=== PATIENT | female | born 1930 | race Caucasian/White ===

== ENCOUNTER 2019-05-30 14:41 | Inpatient (IN) ==
--- NOTE | 2019-05-30 15:27 | Diag Imaging Result Doc PS360 ---
EXAM: CHEST-1 VIEW HISTORY: weakness TECHNIQUE: Single view COMPARISON: None. FINDINGS: The heart is enlarged. The vessels aren't distended and there are small pleural effusions. Left lower lung granuloma. There is basilar atelectasis. IMPRESSION: Cardiomegaly with pulmonary edema and small pleural effusions Electronically signed by Carlos Ro 05/30/2019 3:24 PM
[2019-05-30] MEDS ORDERED: NS 1,000 ML IV ONE (16:03)
[2019-05-30 16:14] LABS: BASO# 0.03 X1000 (0.0-0.2); BASO% 0.4 % (0.0-0.8); EOS# 0.03 X1000 (0.0-0.7); EOS% 0.4 % (0.0-10.0); HEMATOCRIT 30.2 % (37.0-47.0); HEMOGLOBIN 8.6 g/dL (12.0-16.0); LYMPH# 0.98 X1000 (1.2-3.4); MCHC 28.5 g/dL (33-37); MONO# 0.74 X1000 (0.11-0.59); MONO% 9.8 % (1.7-9.3); MPV 10.6 FL (7.4-10.4); NEUT# 5.78 X1000 (1.4-6.5); NEUT% 76.4 % (42.2-75.2); PLT 206 X1000 (130-400); RBC 3.18 XMIL (4.2-5.4); RDW 14.5 % (11.5-14.5); WBC 7.56 X1000 (4.8-10.8)
[2019-05-30 16:19] LABS: INR 1.32; PROTIME 16.6 Seconds (11.0-16.0)
[2019-05-30 16:20] LABS: PTT 28.5 Seconds (22.3-41.8)
[2019-05-30 16:23] LABS: ALB/GLOB RATIO 0.8; CALCIUM 8.4 mg/dL (8.8-10.2); CREATININE 2.3 mg/dL (0.5-0.9); POTASSIUM 4.9 mmol/L (3.5-5.1); TOTAL BILIRUBIN 0.24 mg/dL (0.20-1.00); TOTAL PROTEIN 6.8 g/dL (6.3-8.3)
[2019-05-30] MEDS ORDERED: LASIX IV ONE (17:03)
[2019-05-30 17:53] LABS: URINE SOURCE CATH
[2019-05-30 17:55] LABS: BILIRUBIN URINE NEGATIVE (NEGATIVE); BLOOD URINE NEGATIVE (NEGATIVE); COLOR YELLOW; GLUCOSE URINE NEGATIVE (NEGATIVE); KETONE URINE NEGATIVE (NEGATIVE); LEUKOCYTES URINE NEGATIVE (NEGATIVE); NITRITE URINE NEGATIVE (NEGATIVE); PH URINE 5.5; PROTEIN URINE 100 mg/dL (NEGATIVE); SP GRAVITY URINE 1.017; TURBIDITY URINE HAZY (CLEAR); UR EPITHELIAL CELLS <10 /HPF (<10); URINE BACTERIA NEGATIVE /HPF; URINE RBC <10 /HPF (<10); URINE WBC <10 /HPF (<10); UROBILINOGEN URINE NORMAL (NORMAL)
--- NOTE | 2019-05-30 17:55 | PROVIDER DOCUMENTATION ---
This chart was entered by Sinai Wolff Scribe, acting as scribe for Leonor Li MD. HPI-General Adult - General Stated Complaint: FAILURE TO THRIVE Time Seen by Provider: 05/30/19 14:59 Source: patient, family (), EMS (first response) Allergies/Adverse Reactions: Patient Allergies Allergy/AdvReac Type Severity Reaction Status Date / Time No Known Allergies Allergy Verified 05/30/19 16:11 Home Medications: Home Medication List Medication Instructions Recorded Confirmed Last Taken Type Carvedilol 3.125 mg PO BID 05/30/19 05/30/19 Unknown History Furosemide 20 mg PO DAILY PRN 05/30/19 05/30/19 Unknown History Gabapentin 100 mg PO BID 05/30/19 05/30/19 Unknown History Olmesartan [Benicar] 40 mg PO DAILY 05/30/19 05/30/19 Unknown History Phenylephrine/Acetaminophn/Cpm 1 tab PO Q6H PRN 05/30/19 05/30/19 Unknown History [Norel Ad Tablet] Sulfamethoxazole/Trimethoprim 1 tab PO BID 05/30/19 05/30/19 Unknown History [Sulfamethoxazole-Tmp Ds Tablet] - History of Present Illness -Gen Adult Nature of Presenting Problems: 88 yowf presents to the ed via ems with c/o of fatigue, weakness, sob and low grade fever. is with pt. per ems pt had BP 126/70 O2 was 83% on RA and p t was placed on 3LPM and O2 came up to 94%. pt on exam is lethargic but when questioned pt is a/o x3. sts pt almost fell yesterday due to sx but he was able to help her to rest. Location of Pain/Injury: reports: generalized (weakness and fatigue) Quality of Pain: reports: none Severity: reports: moderate Onset/Duration: reports: this morning Timing: reports: still present, constant Context/Activities at Onset: reports: light activity Modifying Factors: improves with: nothing Associated Symptoms: reports: fever/chills, malaise, shortness of breath, weakness. denies: chest pain, nausea, vomiting Similar Symptoms Previously?: No Recently seen or treated by another doctor?: No Review of Systems - Adult - REVIEW OF SYSTEMS - ADULT Constitutional: reports: see HPI, chills, fever, fatique Eyes: reports: no symptoms reported Ears, Nose, Mouth & Throat: reports: no symptoms reported Cardiovascular: denies: chest pain, palpitations Respiratory: reports: see HPI, shortness of breath. denies: cough, wheezing Gastrointestinal: denies: abdominal pain, diarrhea, nausea, vomiting Genitourinary: reports: no symptoms reported Musculoskeletal: reports: see HPI, other (generalized weakness) Integumentary: reports: no symptoms reported Neurological: denies: dizziness/vertigo, headache/migraines Psychiatric: reports: no symptoms reported Endocrine: reports: no symptoms reported Hematologic/Lymphatic: reports: no symptoms reported Allergic/Immunologic: reports: no symptoms reported All Other Systems: Reviewed and Negative Past History - Adult - PAST MEDICAL HISTORY-ADULT Review of Records: reports: Old Records Reviewed, Nursing Assessment Review, Medications Reviewed, Social history reviewed & non-contributory. Major Childhood Illnesses: reports: denies history Cardiovascular: reports: HTN Respiratory: reports: denies history Gastrointestinal: reports: denies history Obstetrical/Gynecological: reports: denies history Genitourinary: reports: denies history Musculoskeletal: reports: denies history Neurological: reports: denies history Psychiatric: reports: denies history Endocrine/Immune: reports: denies history Other Conditions: reports: denies history - PRIOR SURGERIES/PROCEDURES Surgical/Procedure History: reports: CABG - IMMUNIZATION STATUS Childhood Immunizations: See Nurse Assessment Flu Vaccine: See Nurse Assessment - FAMILY HISTORY Family History: reviewed, not pertinent - SOCIAL HISTORY Smoking: denies Substance Use: denies Living Situation: family Physical Exam-General - PHYSICAL EXAM-ADULT Initial Vital Signs Reviewed: Yes (O2 sat 94% on 3 LPM via nc BP-151/91 RR-27) - CONSTITUTIONAL General Appearance: thin, lethargic - EYES Eyes: PERRL/EOMI - HEAD, EARS, NOSE, MOUTH & THROAT HENMT: negative: moist mucous membranes (dry oral) - NECK Neck: full range of motion, normal inspection - RESPIRATORY Respiratory: chest non-tender, increased rate (27), other (poor resp effort) - CARDIOVASCULAR Cardiovascular: irregularly irregular (afib) - CHEST (BREASTS) Chest/Breast: deferred - GASTROINTESTINAL (ABDOMEN) Abdominal Exam: non tender, soft - GENITOURINARY Female Genitalia/Pelvic Exam: deferred Rectal Exam: deferred Hemoccult Exam: deferred - LYMPHATIC Lymphatic: no adenopathy - MUSCULOSKELETAL Back Exam: no CVA tenderness, no vertebral tenderness Extremity: swelling (BLE) - SKIN Integumentary: normal color, normal turgor, warm/dry - NEUROLOGIC Neurologic: grossly normal - PSYCHIATRIC Psych/Mental Status: normal thought content, normal thought process, oriented x 3 Progress - PLAN OF CARE/RESULTS Result Diagrams: 05/30/19 15:47 05/30/19 15:47 - REASSESSMENT Reassessment #1 Time Reassessed: 17:35 Status: improving (Patent reports some improvement. no sob at this time. Discussed abnormal labs- elevated probnp, elevated bun/cr and abnormal cxr. Will give lasix and call for admission) - EKG 1 Time of EKG reading by physician:: 15:55 EKG Read and Signed by:: Jon Ward EKG Interpretation (*Must complete 3 of following elements*): Abnormal Rate: 74 Rhythm: afib [place]: normal QRS: normal NM Interval: normal ST Wave: normal - XRAY 1 XRAY: Bilateral XRAY Study: Chest ( EXAM: CHEST-1 VIEW HISTORY: weakness TECHNIQUE: Single view COMPARISON: None. FINDINGS: The heart is enlarged. The vessels aren't distended and there are small pleural effusions. Left lower lung granuloma. There is basilar atelectasis. IMPRESSION: Cardiomegaly with pulmonary edema and small pleural effusions Electronically signed by Carlos Ro 05/30/2019 3:24 PM) Impression: See EMR Report (EXAM: CHEST-1 VIEW HISTORY: weakness TECHNIQUE: Single view COMPARISON: None. FINDINGS: The heart is enlarged. The vessels aren't distended and there are small pleural effusions. Left lower lung granuloma. There is basilar atelectasis. IMPRESSION: Cardiomegaly with pulmonary edema and small pleural effusions Electronically signed by Carlos Ro 05/30/2019 3:24 PM 05/30/19 152 Interpreting Physician: Carlos Ro MD Dictated Date/Time: 05/30/191523 cc: Leonor Li MD; Lucia Atkins) - CONSULTS/PCP/HOSPITALIST Notification #1 *Consult/PCP/Hospitalist*: Dr Nolan Time Discussed: 17:52 Consult Disposition: Admit (accepts admission) Departure - Departure Date of Disposition Decision: 05/30/19 Time of Disposition Decision: 17:50 DIAGNOSIS: Hypoxemia, Renal insufficiency CHF (congestive heart failure) Qualifiers: Heart failure type: unspecified Heart failure chronicity: acute Qualified Code(s): I50.9 - Heart failure, unspecified Disposition: ADMITTED INPATIENT 09 Certified Medical Emergency: Emergent Condition: Fair Referrals and Follow-Ups: Lucia Atkins CRNP [Primary Care Provider] - - Critical Care Note This patient required my direct & personal management of CC.: No Attestation - Physician/ CELIO Attestation Patient care was provided by Advanced Practice Provider:: No The physician spent face to face time with patient:: Yes Advanced Practice Provider documentation review:: Supervising physician onsite and consulted in the evaluation and care of this patient. The physician did have a face to face encounter with the patient. This chart was documented by the indicated scribe, (Sinai Wolff Scribe) and accurately reflects the services I performed and decisions made by me, Leonor Li MD, as attested by the provider's signature.
[2019-05-30 18:49] LABS: ALLEN TEST YES; BE 3.6 mmoll (-3.0-3.0); BLOOD TYPE ARTERIAL; HCO3-(ACT) 27.7 mmoll (20.0-26.0); O2(CT) 12.6 mL/dL (15.0-23.0); O2HB 96.2 % (95.0-99.0); PO2(98.6) 123 mmHg (60-100); SAMPLE BLOOD; SAO2 99.3 % (95.0-100.0); THB 9.1 g/dL (11.5-17.4); pH(98.6) 7.25 (7.35-7.45)
[2019-05-30 18:52] LABS: MODALITY VENTIMASK; PCO2(98.6) 73 mmHg (35-45)
[2019-05-30 20:08] LABS: URINE SOURCE CATH
[2019-05-30 20:19] LABS: BILIRUBIN URINE NEGATIVE (NEGATIVE); BLOOD URINE NEGATIVE (NEGATIVE); COLOR YELLOW; GLUCOSE URINE NEGATIVE (NEGATIVE); KETONE URINE NEGATIVE (NEGATIVE); LEUKOCYTES URINE NEGATIVE (NEGATIVE); NITRITE URINE NEGATIVE (NEGATIVE); PROTEIN URINE 100 mg/dL (NEGATIVE); SP GRAVITY URINE 1.016; TURBIDITY URINE HAZY (CLEAR); UROBILINOGEN URINE NORMAL (NORMAL)
[2019-05-30 20:32] LABS: UR EPITHELIAL CELLS <10 /HPF (<10); URINE BACTERIA NEGATIVE /HPF; URINE RBC <10 /HPF (<10); URINE WBC <10 /HPF (<10)
[2019-05-30 20:39] LABS: URINE CASTS GRANULAR PRESENT; URINE CRYSTALS NONE SEEN; URINE SMALL ROUND CELLS NONE SEEN; URINE YEAST NONE SEEN
--- NOTE | 2019-05-30 20:42 | HISTORY AND PHYSICAL ---
CHIEF COMPLAINT: Shortness of breath. HISTORY OF PRESENT ILLNESS: This is an 88-year-old female who has a history of heart disease, status post CABG, most likely heart failure. She has never been admitted here before, not since 2010. She came in with shortness of breath per the family, which I think are son and . She has been kind of more short of breath, not as active, sleeping a lot, lethargic for the last 3 days. She cannot breathe lying flat on her back and orthopnea. No reported PND. No chest pain. I do not think she is clearly on oxygen. Apparently, she almost fell out, collapsed yesterday. She came in to the ER. She was hypoxic with a saturation of 83% on room air. Blood pressure 126/70. She clearly had heart failure on exam with renal failure, and she was admitted for acute CHF exacerbation. She also has renal insufficiency which has progressed and a proBNP of 15,985. PAST MEDICAL HISTORY: 1. Hypertension. 2. Diabetes. 3. CAD, status post CABG. 4. Possibly atrial fibrillation. It is not completely clear, but she is in atrial fibrillation now. PAST SURGICAL HISTORY: 1. She has had a hernia repair. 2. She had a CABG, 3 vessel, in 2000. FAMILY HISTORY: Positive for hypertension. SOCIAL HISTORY: No tobacco or ethanol. She lives with her . ALLERGIES: No known drug allergies. MEDICATIONS: By report: 1. Olmesartan 40 daily. 2. Coreg 3.125 b.i.d. 3. Lasix 20 daily. 4. Gabapentin 100 b.i.d. 5. Phenylephrine p.r.n. 6. Bactrim, which I am not entirely sure that was not started here. REVIEW OF SYSTEMS: Generally, no weight loss. Poor appetite when she came in and for the last 3 days. No chest pain. Shortness of breath as described. GI: No nausea, vomiting, diarrhea, constipation. No hematochezia. No melena. No dysuria. PHYSICAL EXAMINATION: VITAL SIGNS: Blood pressure is 140/52, heart rate of 75, respiratory rate of 23, temperature of 98.3 degrees, 97% on 50%. GENERAL: A well developed female, appears stated age. HEAD: Exam was normocephalic, atraumatic. EYES: Pupils are equal, round, and reactive to light. Extraocular movements were intact. EARS, NOSE, THROAT: He had moist mucous membranes. She is edentulous. NECK: Supple. CARDIOVASCULAR: Irregularly irregular with a blowing, at least 3/6 holosystolic murmur heard throughout apex and 2nd left intercostal space. GI: Soft, nontender, nondistended. Bowel sounds were positive. NEUROLOGIC: Nonfocal, but she was pretty confused. I think she is a bit hard of hearing and she is blind in her left eye. MUSCULOSKELETAL: About 4/5 in all 4 extremities. LABORATORY DATA: 1. White count 7, hemoglobin and hematocrit 8 and 30, platelets 206,000. Coagulation studies okay. Basic was normal. Creatinine 2.3. ProBNP 15,985. Albumin was 3. Urine was clear. ASSESSMENT: 1. This is an 88-year-old female with coronary artery disease, who presents with an acute congestive heart failure exacerbation, presumably systolic, an acute systolic heart failure exacerbation. We will get an echocardiogram, rule out with serial enzymes, get Cardiology's opinion, initiate diuretics, and will follow for clinical improvement. 2. Chronic renal failure, possibly acute on chronic. We will monitor inputs and outputs closely, daily weights, continue diuresis, and see how renal function responds. 3. Acute hypoxic respiratory failure. We will continue to monitor closely. 4. Type 2 diabetes. We will follow blood sugars. Check A1c. Continue regular sliding scale and monitor. cc: Evens Nolan MD
[2019-05-30] MEDS ORDERED: TYLENOL PO PRN (22:59)
[2019-05-30] MEDS ORDERED: ZOFRAN IV PRN (22:59)
[2019-05-30] MEDS: HUMULIN R SUBQ SCH (23:32)
[2019-05-30] MEDS: NEURONTIN PO SCH (23:54)
[2019-05-30] MEDS: HEPARIN SUBQ SCH (23:54)
[2019-05-30] MEDS: COREG PO SCH (23:54)
[2019-05-31] MEDS: NEURONTIN PO SCH ×3 (00:02→20:46)
[2019-05-31] MEDS: COREG PO SCH ×3 (00:02→20:46)
[2019-05-31] MEDS: HEPARIN SUBQ SCH ×3 (00:03→20:46)
[2019-05-31] MEDS: HUMULIN R SUBQ SCH ×4 (06:29→20:47)
[2019-05-31] MEDS: LASIX IV SCH ×2 (06:29→17:15)
[2019-05-31] MEDS ORDERED: BLISTEX MEDICATED BERRY LIP BALM TOP PRN (06:34)
[2019-05-31 07:06] LABS: HEMOGLOBIN A1C 5.6 % (4.8-6.0)
[2019-05-31 07:24] LABS: BASO# 0.02 X1000 (0.0-0.2); BASO% 0.3 % (0.0-0.8); EOS# 0.05 X1000 (0.0-0.7); EOS% 0.7 % (0.0-10.0); HEMATOCRIT 29.1 % (37.0-47.0); HEMOGLOBIN 8.3 g/dL (12.0-16.0); LYMPH# 0.98 X1000 (1.2-3.4); LYMPH% 13.2 % (20.5-51.1); MCH 27.6 PG (27-31); MCHC 28.5 g/dL (33-37); MCV 96.7 FL (81-99); MONO% 12.1 % (1.7-9.3); MPV 10.6 FL (7.4-10.4); NEUT# 5.47 X1000 (1.4-6.5); NEUT% 73.7 % (42.2-75.2); PLT 195 X1000 (130-400); RBC 3.01 XMIL (4.2-5.4); RDW 14.4 % (11.5-14.5); WBC 7.42 X1000 (4.8-10.8)
[2019-05-31 07:43] LABS: ALB/GLOB RATIO 0.7; ALBUMIN 2.7 g/dL (3.5-5.0); CALCIUM 8.5 mg/dL (8.8-10.2); CREATININE 2.4 mg/dL (0.5-0.9); TOTAL BILIRUBIN 0.25 mg/dL (0.20-1.00); TOTAL PROTEIN 6.6 g/dL (6.3-8.3)
[2019-05-31 11:55] LABS: ALLEN TEST YES; BE 5.1 mmoll (-3.0-3.0); BLOOD TYPE ARTERIAL; HCO3-(ACT) 28.9 mmoll (20.0-26.0); METHB 0.6 % (0.0-1.5); O2(CT) 11.5 mL/dL (15.0-23.0); O2HB 97.1 % (95.0-99.0); PO2(98.6) 124 mmHg (60-100); SAMPLE BLOOD; SAO2 99.7 % (95.0-100.0); THB 8.2 g/dL (11.5-17.4); pH(98.6) 7.29 (7.35-7.45)
[2019-05-31 11:58] LABS: MODALITY VENTIMASK
[2019-05-31 11:59] LABS: PCO2(98.6) 68 mmHg (35-45)
[2019-05-31] MEDS ORDERED: CALMOSEPTINE OINTMENT TOP PRN (12:03)
--- NOTE | 2019-05-31 12:15 | EKG Report ---
Test Performed on : 05/30/2019 3:55:44 PM Test Reason : CP Blood Pressure : / mmHG Vent. Rate : 074 BPM Atrial Rate : 047 BPM P-R Int : 000 ms QRS Dur : 092 ms QT Int : 394 ms P-R-T Axes : 000 006 086 degrees QTc Int : 437 ms Atrial fibrillation. Abnormal ECG No previous ECGs available Unconfirmed Result
--- NOTE | 2019-05-31 14:21 | CARDIOLOGY CONSULTATION ---
DATE: 05/31/2019 CHIEF COMPLAINT: Shortness of breath. HISTORY OF PRESENT ILLNESS: Ms Campbell is an 88-year-old female who presented for complaints of shortness of breath. This has been worse over the last several days. She does report some orthopnea but no pain complaints. She was apparently hypoxic on presentation. She thinks she has been compliant with all medications at home. PAST MEDICAL HISTORY: 1. Significant for hypertension. 2. Diabetes. 3. Coronary artery disease with history of bypass grafting. 4. History of mild to moderate aortic stenosis. 5. Hyperlipidemia. SOCIAL HISTORY: No tobacco or alcohol. She lives with her . FAMILY HISTORY: Significant for hypertension. REVIEW OF SYSTEMS: A 10 system review of systems is negative except for those mentioned in HPI. PHYSICAL EXAMINATION: Afebrile. Heart rate 79, blood pressure 115/47.General: She is in no acute distress. HEENT: Oropharynx moist. Poor dentition. Lolo conjunctivae, white sclerae. Neck: No obvious thyromegaly or thyroid tenderness. Cardiovascular: She sounds to be in a regular rate and rhythm. She has a 2/6 systolic murmur that is best heard throughout the precordium. She has trace to 1+ bilateral lower extremity edema. Chest: Clear. Poor inspiratory effort. Abdomen: Soft, nontender, nondistended. She has no obvious organomegaly. Skin: Warm and dry throughout without any rashes. PERTINENT DATA: Her EKG that was checked on the at 1555 suggests the possibility of atrial fibrillation. It is a difficult study. Poor baseline. Chest x-ray shows cardiomegaly with pulmonary edema, pleural effusions. White count 7.4, hematocrit 29, platelet count 195,000. ABG shows a pH 7.29 with pCO2 of 68. Sodium is 138, potassium is 5, BUN 35, creatinine is 2.4, on presentation her creatinine was 2.3, in 2016 it was 1.4. Her proBNP was 15,000 yesterday. She has high sensitivity troponin has been checked 3 times and has been stable ranging between 63 and 65. ASSESSMENT: Ms. Campbell is an 88-year-old female who presented with shortness of breath. PLAN: We are awaiting the echocardiogram results. She has a history of coronary disease as well as aortic stenosis. She had a fixed defect on nuclear scanning in 2018. For now, we will continue with gentle diuresis. She is on Lasix at a dose of 40 IV b.i.d. cc: Tio Sommer MD
--- NOTE | 2019-05-31 15:16 | PROGRESS NOTE ---
DATE: 05/31/2019 SUBJECTIVE: The patient has no major complaints. OBJECTIVE: Blood pressure is 105/48, heart rate was 65, respiratory rate is 16. She is 100% on a Venturi mask which I guess is 50%. LABORATORY: White count 7, hemoglobin and hematocrit 8 and 29, platelets 195,000, pH 7.29, pCO2 68, PaO2 124, creatinine is down to 2.4. PROBLEM LIST: 1. Acute hypoxic respiratory failure due to unclear etiology. Based on her plain films it looks more like heart failure, could be an interstitial pneumonia but she does not have a white count, she does not have any fever so it is a bit unclear. I did get a pulmonary opinion just because she has a fairly high oxygen requirement and she is full code and she also has hypercapnia but we are going to continue to treat as heart failure. I have not put her on any antibiotics unless something changes in her antibiotic that would require antibiotic coverage. 2. Rule out or possible congestive heart failure exacerbation. Waiting on echocardiogram. She does have a history of coronary artery disease and aortic stenosis. We will continue diuretics and her Coreg and we will monitor renal function because she does have a little bit of renal dysfunction but it is kind of at her baseline. 3. Diabetes. This appears to be well controlled. I am not entirely sure she actually carries that diagnosis. She is not on any medications and her A1c was 5.6 and pretty much all her sugars have been normal so we may be able stop checking those in a bit. 4. Anemia. Pursue workup as far as that is concerned. DISPOSITION: Pending her clinical status. I appreciate consultants' assistance. cc: Evens Nolan MD
--- NOTE | 2019-05-31 19:25 | PULMONOLOGY CONSULTATION ---
DATE: 05/31/2019 CHIEF COMPLAINT: Shortness of breath. REQUESTING PHYSICIAN: Dr. James Nolan. HISTORY OF PRESENT ILLNESS: This is an 88-year-old female with a history of CAD, atrial fibrillation, and diabetes, who presented to the emergency room with family members who stated that the patient had been "kind of more short of breath than normal, not as active and has been sleeping a lot over the last 3 days." The patient stated that she did have some trouble breathing when lying flat on her back, and she did report 2- to 3-pillow orthopnea. She denied any chest pain or dizziness or any palpitations. Prior to coming to the emergency room she almost fell, collapsing. She stated that she just was too weak to hold herself up. On arrival to the emergency room she was found to have a room air saturation of 83%. She feels that she is compliant with her medications and her diet. PAST MEDICAL HISTORY: 1. Hypertension. 2. Diabetes mellitus. 3. CAD status post CABG. 4. Questionable atrial fibrillation. PAST SURGICAL HISTORY: Hernia repair, coronary artery bypass graft x3 in 2000. FAMILY HISTORY: Positive for hypertension and diabetes. SOCIAL HISTORY: She lives with her . Denies alcohol, tobacco, or illicit drug use. ALLERGIES: No known drug allergies stated. MEDICATIONS: By report, Coreg, Lasix, gabapentin, Benicar, Bactrim. REVIEW OF SYSTEMS: Discussed with patient, with pertinent positives stated in the HPI. She denied any syncope or dizziness, any chest pain or palpitations, a productive cough, any nausea, vomiting, diarrhea or constipation, black or bloody vomitus or stools, any hematuria, dysuria, frequency or urgency. PHYSICAL EXAMINATION: General: This is an 88-year-old female who is lying in the bed in no distress. Vital Signs: Blood pressure is 105/48 with a heart rate of 65. Respirations are 16, temperature is 97.5 oral with O2 saturation that is 100% on 50% Ventimask. Eyes: Pupils are equal, round, and react to light. EOMs are intact. Sclerae anicteric. HENT: Head is normocephalic, atraumatic. Mucous membranes are moist. Neck: Supple with trachea midline. Cardiovascular: Irregularly irregular rate and rhythm. S1 and S2 appreciated. She has a 3/6 holosystolic murmur heard best at the 2nd left intercostal space. Pulmonary: Breath sounds are clear with no increased work of breathing noted. Chest rises and falls symmetrically with respiration. Chest wall is nontender to palpation. Gastrointestinal: Abdomen is soft, nontender, nondistended with bowel sounds in all 4 quadrants. Neurologic: She is alert and oriented. Skin: Warm and dry. LABS: WBCs 7.4 with hemoglobin 8.3, hematocrit 29.1, and platelets of 195. Sodium 138, potassium 5, BUN 35, creatinine 2.4 with a glucose of 114. ABGs: pH of 7.29, pCO2 of 68, pO2 of 124, and bicarbonate of 28.9. This is on 50% Ventimask. Blood cultures are pending. Chest x-ray revealed cardiomegaly with pulmonary edema and small pleural effusions. ASSESSMENT AND PLAN: 1. Acute hypoxic respiratory failure with unclear etiology. 2. History of coronary artery disease with aortic stenosis. Cardiology has been consulted. Echocardiogram is pending. 3. History of coronary artery disease status with history of bypass grafting. Aware. 4. Hypertension. 5. Diabetes mellitus. 6. Chronic kidney disease with a baseline creatinine of 1.1. 7. Possible congestive heart failure. Chest x-ray was read as pulmonary edema with cardiomegaly. As stated before, Cardiology has been consulted. We agree with diuresis. As the patient does have does not have a white count, she is afebrile, she reported no fevers at home, and chest x-ray is read as cardiomegaly with pulmonary edema and small pleural effusion, we agree with holding antibiotics as of this time. Procalcitonin is pending. We will repeat a chest x-ray in the morning. Thank you for allowing us to participate in this patient's care. Dictated by DANY Piña for Lázaro Sewell MD cc: DANY Piña MD [facility]
[2019-06-01] MEDS: LASIX IV SCH ×2 (05:58→21:14)
[2019-06-01 06:34] LABS: BASO# 0.03 X1000 (0.0-0.2); BASO% 0.6 % (0.0-0.8); EOS# 0.13 X1000 (0.0-0.7); EOS% 2.5 % (0.0-10.0); HEMATOCRIT 29.9 % (37.0-47.0); HEMOGLOBIN 8.4 g/dL (12.0-16.0); LYMPH% 15.6 % (20.5-51.1); MCHC 28.1 g/dL (33-37); MCV 96.1 FL (81-99); MONO# 0.53 X1000 (0.11-0.59); MONO% 10.3 % (1.7-9.3); MPV 10.2 FL (7.4-10.4); NEUT# 3.64 X1000 (1.4-6.5); PLT 167 X1000 (130-400); RBC 3.11 XMIL (4.2-5.4); RDW 14.2 % (11.5-14.5); WBC 5.13 X1000 (4.8-10.8)
[2019-06-01 06:37] LABS: CREATININE 2.5 mg/dL (0.5-0.9); POTASSIUM 4.6 mmol/L (3.5-5.1)
[2019-06-01 07:00] LABS: FERRITIN 54 ng/mL (13-150)
--- NOTE | 2019-06-01 08:05 | Diag Imaging Result Doc PS360 ---
EXAM: CHEST-PORTABLE - 06/01/2019 HISTORY: dyspnea TECHNIQUE: Portable chest COMPARISON: 05/30/2019 FINDINGS: Heart size appears enlarged and stable. There is been mild decrease in vascular congestion/interstitial edema. There are small bilateral pleural effusions similar to prior. There is no evidence of pneumothorax. IMPRESSION: Mild decrease in pulmonary edema compared to prior. Electronically signed by Shayan Nieves 06/01/2019 8:03 AM
[2019-06-01] MEDS: COREG PO SCH ×2 (08:35→21:14)
[2019-06-01] MEDS: NEURONTIN PO SCH ×2 (08:35→21:14)
[2019-06-01] MEDS: HEPARIN SUBQ SCH ×2 (08:35→21:14)
[2019-06-01] MEDS: HUMULIN R SUBQ SCH ×4 (08:45→21:11)
--- NOTE | 2019-06-01 12:50 | ECHO REPORT ---
ORDER DATE: 05/31/2019 INDICATIONS: CHF, coronary artery disease. FINDINGS: 1. Right atrium is moderately enlarged. 2. Moderate tricuspid regurgitation. RV systolic pressure of 54, suggesting pulmonary hypertension. 3. The right ventricle is difficult to visualize. Probable normal RV size with mild reduction in RV systolic function. 4. Mild pulmonic insufficiency. 5. Severe left atrial enlargement. Volume index of 70. 6. No mitral valve prolapse. Mild to moderate mitral regurgitation. No clear evidence of mitral stenosis. 7. Left ventricle is normal in size with an end-diastolic dimension of 4.3 cm. Normal wall thicknesses with a posterior and interventricular septal wall thickness of 1.1 cm each. Reduced LV systolic function with an estimated EF of 35% on difficult views. There is flattening of the interventricular septum in both systole and diastole, suggesting right ventricular pressure and volume overload. 8. Aortic valve appears calcified with restriction of motion. This is likely a moderate degree of stenosis. The peak gradient across the valve is 28 with a mean of 15. The valve area is 0.7 cm2 by the continuity equation but the dimensionless index across the valve is 0.28. This suggests low output . No aortic insufficiency. 9. Aorta appears normal in visualized segments. 10. No pericardial effusion seen. 11. The IVC is dilated with minimal collapse. cc: MD Evens Ortiz MD MTDD
[2019-06-01] MEDS: FOLIC ACID 1 MG in NS 50 ML IV SCH (14:13)
--- NOTE | 2019-06-01 15:03 | PULMONOLOGY PROGRESS NOTE ---
DATE: 06/01/2019 Ms. Campbell is lying in the bed. She appears comfortable. She denies any complaints. OBJECTIVE: Vital signs: Blood pressure is 107/59 with a heart rate of 58, respirations 17, temperature is 98.3 degrees oral with O2 saturations that are 99-100% on 6 L nasal cannula . Cardiovascular: Irregularly irregular rate and rhythm, S1 and S2 are appreciated, she has no lower extremity edema. Peripheral pulses are palpable x4 extremities. Pulmonary: Breath sounds are clear with no increased work of breathing noted. Chest rises and falls symmetric with respiration. Chest wall is nontender to palpation. Gastrointestinal: Abdomen soft, nontender, nondistended with bowel sounds in all 4 quadrants. Neurologic: She is alert and oriented. Skin is warm and dry. LAB: WBC is 5.1 with hemoglobin 8.4, hematocrit 29.9 and platelets of 167,000. Sodium 135, potassium 4.6, BUN 39, creatinine 2.5 with a glucose of 124. Chest x-ray reveals mild decrease of pulmonary edema. There is no evidence of pneumothorax. IMPRESSION: This is an 88-year-old female with. 1. Acute hypoxic respiratory failure with unclear etiology. 2. History of coronary artery disease with aortic stenosis, echocardiogram is pending. 3. History of coronary artery disease with a history of bypass grafting. 4. Hypertension. 5. Diabetes mellitus. 6. Chronic kidney disease. 7. Possible congestive heart failure, echocardiogram is pending. Cardiology has been consulted. PLAN: continue supplemental oxygen. Daily chest x-rays. continue Diuresis She continues to be afebrile with no elevated white blood cell count, procalcitonin is pending, we will continue holding antibiotics at this time. Dictated by DANY Piña for Lázaro Sewell MD cc: DANY Piña MD [facility]
--- NOTE | 2019-06-01 15:10 | CARDIOLOGY PROGRESS NOTE ---
DATE: 06/01/2019 SUBJECTIVE: The patient reports overall she feels better. PHYSICAL EXAMINATION: She is afebrile. Heart rate 58, blood pressure 107/59. Her I's and O's are very limited. She has a essentially matched fluid balance. General: She is in no acute distress. Cardiovascular: She sounds to be in a regular rate and rhythm. She has no obvious murmurs. She has no S3. She has mild bilateral lower extremity edema. Chest: Sounds to have a reduced breath sounds in the bilateral bases. No increased work of breathing. Abdomen: Soft, nontender. PERTINENT DATA: Her echocardiogram shows an ejection fraction of 35% with evidence of right ventricular pressure and volume overload. She has a RV systolic pressure of 54, suggestion of aortic stenosis. Her dimensionless index was 0.28. Her laboratory data shows a white count of 5.1, hematocrit 29, platelet count 167,000. Sodium 135, potassium 4.6, BUN 39, creatinine 2.5, which was 2.3 on the 28th. Her proBNP is 15,422 which is roughly stable. ASSESSMENT: Ms. Campbell is an 88-year-old female who presented in heart failure. PLAN: She has a newly reduced ejection fraction. In addition, she has what appears to be a moderate and possibly severe degree of aortic stenosis. She does not seem like a candidate presently due to her debility and frailty for any sort of ischemia evaluation. She has a dilated IVC and elevated right ventricular pressures on her echocardiogram suggesting continued volume overload. We will try to bump her Lasix up to 80 IV b.i.d. Laboratories to be checked in the morning. cc: Tio Sommer MD
[2019-06-01] MEDS ORDERED: FERRLECIT 125 MG in NS 100 ML IV ONE (15:18)
--- NOTE | 2019-06-01 15:37 | PROGRESS NOTE ---
DATE: 06/01/2019 SUBJECTIVE: The patient has no complaints. OBJECTIVE: Blood pressure is 107/59, heart rate 58, respiratory rate of 17, temperature 98.3 degrees, 100% on 4 L. Cardiovascular: Regular rate and rhythm. Pulmonary: Bilateral breath sounds clear to auscultation. GI: Soft, nontender, nondistended. Bowel sounds were positive. Laboratory Data: White count is 5, hemoglobin and hematocrit 8 and 29, platelets 167,000. BUN and creatinine are 39 and 2.5 but tolerating pretty well in the setting of CHF and diuretics. Iron levels were low, consistent with iron deficiency. Her iron saturation is 9%, ferritin only 54. ProBNP barely dropped. Her folate level is low too. PROBLEM LIST: 1. Acute hypoxic respiratory failure due to congestive heart failure. She has, I believe, congestive heart failure, ejection fraction of 35%, and aortic stenosis. In any case, we will continue medical management, diuresis, and follow. 2. Acute systolic congestive heart failure exacerbation. She is on diuretics, Coreg. Dr. Sommer does not feel like she is a candidate for ischemic evaluation. I guess we are just going to kind of follow along. I am not entirely sure exactly what the family is thinking about all this. 3. I think we will get a palliative care consult too. 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 This is probably not going to be amenable to any other treatments. I think we may need to consider other options. cc: Evens Nolan MD
[2019-06-02] MEDS: HUMULIN R SUBQ SCH ×4 (06:27→20:27)
[2019-06-02 06:47] LABS: BASO# 0.01 X1000 (0.0-0.2); BASO% 0.2 % (0.0-0.8); EOS# 0.15 X1000 (0.0-0.7); EOS% 2.7 % (0.0-10.0); HEMATOCRIT 29.7 % (37.0-47.0); HEMOGLOBIN 8.5 g/dL (12.0-16.0); LYMPH# 0.83 X1000 (1.2-3.4); MCH 27.3 PG (27-31); MCHC 28.6 g/dL (33-37); MCV 95.5 FL (81-99); MONO# 0.69 X1000 (0.11-0.59); MONO% 12.4 % (1.7-9.3); MPV 10.5 FL (7.4-10.4); NEUT# 3.87 X1000 (1.4-6.5); NEUT% 69.7 % (42.2-75.2); PLT 155 X1000 (130-400); RBC 3.11 XMIL (4.2-5.4); RDW 14.2 % (11.5-14.5); WBC 5.55 X1000 (4.8-10.8)
[2019-06-02 06:49] LABS: CALCIUM 8.6 mg/dL (8.8-10.2); CREATININE 2.2 mg/dL (0.5-0.9); POTASSIUM 4.8 mmol/L (3.5-5.1)
--- NOTE | 2019-06-02 07:33 | Diag Imaging Result Doc PS360 ---
EXAM: CHEST-PORTABLE INDICATION: dyspnea TECHNIQUE: One view COMPARISON: 06/01/2019 FINDINGS: There are persistent small bilateral pleural effusions. The effusion on the right may have increased slightly in size. Pulmonary venous congestion and mild interstitial edema is approximately stable. No new consolidation is identified, otherwise. Cardiac silhouette is stable. IMPRESSION: Slight increase in small right effusion. Essentially stable chest, otherwise. Electronically signed by Edgar Caputo 06/02/2019 7:30 AM
[2019-06-02] MEDS ORDERED: SAMSCA PO ONE (08:33)
[2019-06-02 08:35] LABS: BANDS 2 % (0-1); EOS 2 % (1-10); HYPOCHROM 1+; LYMPHS 12 % (21-51); MONO 6 % (1-9); SEGS 78 % (42-75)
[2019-06-02] MEDS: LASIX IV SCH ×2 (09:02→20:34)
[2019-06-02] MEDS: NEURONTIN PO SCH (09:02)
[2019-06-02] MEDS: ICAR-C PO SCH (09:02)
[2019-06-02] MEDS: COREG PO SCH ×2 (09:02→20:35)
[2019-06-02] MEDS: HEPARIN SUBQ SCH ×2 (09:03→20:34)
--- NOTE | 2019-06-02 14:59 | CARDIOLOGY PROGRESS NOTE ---
DATE: 06/02/2019 SUBJECTIVE: Ms. Campbell is less responsive today. She is protecting her airway but she only moans to physical and verbal stimuli. OBJECTIVE: Vital signs: Afebrile. Heart rate 83, blood pressure 121/89. Her I's and O's were slightly negative over the last 24 hours, around 750 mL. General: She is in no acute distress. Cardiovascular: She sounds to be in a regular rate and rhythm. She has a 2/6 systolic murmur best heard at the right upper sternal border. She has warm and well-perfused extremities. Chest: Sounds clear but she has a poor inspiratory effort. Abdomen: Soft, nontender. PERTINENT DATA: White count 5.5, hematocrit 29, platelet count is 155,000. She has a slight bandemia. Her sodium is 133, potassium 4.8, BUN 40, creatinine 2.2 which is down from 39 and 2.5 yesterday. ProBNP is 15,644 which is roughly stable. ASSESSMENT: Ms. Campbell is a 88-year-old female with new onset heart failure and aortic stenosis. PLAN: I will try to give her a low dose of Samsca. However, if she is not able to tolerate oral intake at some point today, she may not be able to. She is not a real candidate for any sort of invasive ischemic evaluation or intervention to her aortic valve. We will try to handle this medically for the time being. cc: Tio Sommer MD
[2019-06-02] MEDS: FOLIC ACID 1 MG in NS 50 ML IV SCH (15:25)
--- NOTE | 2019-06-02 15:49 | PROGRESS NOTE ---
DATE: 06/02/2019 SUBJECTIVE: She seems sleepy again, but overall doing okay. OBJECTIVE: Vital Signs: Blood pressure is 121/89, heart rate of 83, respiratory rate 22, temperature 97.3 degrees, satting 96% on 4 L. Cardiovascular: Regular rate and rhythm. Pulmonary: Bilateral breath sounds. Clear to auscultation. GI: Soft, nontender, nondistended. Bowel sounds are positive. Extremity exam: No clubbing or cyanosis. Lymphatic exam: No peripheral edema. Neurological exam: Nonfocal. LABORATORY DATA: White count is 5, hemoglobin and hematocrit 8 and 29, platelets 155. Basic was normal. BUN and creatinine of 40 and 2.2. ProBNP really has not changed much. PROBLEM LIST: 1. Acute congestive heart failure exacerbation. We will continue her current treatments. Dr. Sommer is following. They do not feel like she is a candidate because of her age and multiple things--that she really is a candidate for aggressive surgical intervention, so we are going to try to get her stabilized the best we can medically. 2. Acute hypoxic respiratory failure. She is still requiring oxygen, but is stable. DISPOSITION: I am going to get Palliative Care in on this as would possibly be hospice appropriate. I am not sure how much the family is understanding her multiple diagnoses, but we will continue to follow. cc: Evens Nolan MD
[2019-06-03 06:03] LABS: BASO# 0.03 X1000 (0.0-0.2); BASO% 0.5 % (0.0-0.8); EOS# 0.14 X1000 (0.0-0.7); EOS% 2.5 % (0.0-10.0); HEMATOCRIT 29.6 % (37.0-47.0); HEMOGLOBIN 8.2 g/dL (12.0-16.0); LYMPH# 0.73 X1000 (1.2-3.4); LYMPH% 13.1 % (20.5-51.1); MCH 26.9 PG (27-31); MCHC 27.7 g/dL (33-37); MONO# 0.59 X1000 (0.11-0.59); MONO% 10.6 % (1.7-9.3); MPV 10.4 FL (7.4-10.4); NEUT# 4.08 X1000 (1.4-6.5); NEUT% 73.3 % (42.2-75.2); PLT 154 X1000 (130-400); RBC 3.05 XMIL (4.2-5.4); RDW 14.1 % (11.5-14.5); WBC 5.57 X1000 (4.8-10.8)
[2019-06-03 06:18] LABS: CALCIUM 8.7 mg/dL (8.8-10.2); CREATININE 1.8 mg/dL (0.5-0.9); MAGNESIUM 1.9 mg/dL (1.5-2.7); POTASSIUM 4.7 mmol/L (3.5-5.1)
[2019-06-03] MEDS: HUMULIN R SUBQ SCH ×4 (06:41→20:59)
[2019-06-03 06:48] LABS: BANDS 2 % (0-1); LYMPHS 25 % (21-51); SEGS 71 % (42-75)
[2019-06-03 06:51] LABS: ANISOCYTOSIS 1+; HYPOCHROM 1+
--- NOTE | 2019-06-03 07:19 | PULMONOLOGY PROGRESS NOTE ---
DATE: 06/02/2019 SUBJECTIVE: The patient is arousable. She has difficulty answering questions. OBJECTIVE: Vital Signs: Blood pressure 130/42, heart rate 70, respiratory rate 18, oxygen saturation 100% on 4 liters per nasal cannula. HEENT: Pupils are equal and reactive. Oropharynx appears clear. Neck: Supple. Chest: Reveals decreased breath sounds in both lung bases. Cardiac: Irregular irregular rhythm. Normal S1, normal S2. She has a prominent systolic murmur right upper sternal border. Abdomen: Soft. Extremities: Without edema. LABORATORIES: Sodium 133, potassium 4.8, chloride 94, bicarbonate 31, BUN 40, creatinine 2.2. IMPRESSION: An 88-year-old with: 1. Acute hypoxemic respiratory failure. 2. Severe aortic stenosis with heart failure. 3. Acute on chronic renal failure. DISCUSSION: An 88-year-old with problems outlined above. I agree with the hospitalist. Her prognosis is guarded. Palliative care/hospice evaluation would be of benefit. cc: Lázaro Sewell MD
[2019-06-03] MEDS: COREG PO SCH ×2 (08:18→21:10)
[2019-06-03] MEDS: ICAR-C PO SCH (08:18)
[2019-06-03] MEDS: HEPARIN SUBQ SCH ×2 (08:18→21:10)
[2019-06-03] MEDS: LASIX IV SCH ×2 (08:19→21:09)
[2019-06-03] MEDS: APRESOLINE PO SCH ×3 (09:39→16:16)
[2019-06-03] MEDS: ISORDIL PO SCH ×3 (09:40→16:16)
[2019-06-03] MEDS: FOLIC ACID 1 MG in NS 50 ML IV SCH (13:51)
--- NOTE | 2019-06-03 14:46 | CARDIOLOGY PROGRESS NOTE ---
DATE: 06/03/2019 SUBJECTIVE: Ms. Campbell reports no complaints today. She has elected to go home with hospice. OBJECTIVE: Vital Signs: Afebrile. Heart rate 72, blood pressure 130/54. I Os have continued to be negative. She is negative a total of 1.5 L. Generally: She is in no acute distress. Cardiovascular: She is in a regular rate and rhythm. She has a 3/6 systolic murmur best heard at the right upper sternal border. She has no lower extremity edema. Chest: Exam sounds clear but she has a poor inspiratory effort. Abdomen: Soft, nontender. PERTINENT DATA: BUN and creatinine are 37 [place] [address]. This is up from 15,000 yesterday. ASSESSMENT: Ms. Campbell is an 88-year-old female with severe aortic stenosis and heart failure. PLAN: I believe it is reasonable for her to go home with hospice. She is not a candidate for any sort of interventions to her aortic valve. I had at length discussions with her and her family regarding her code status. She has a poor prognosis with her reduced EF and severe . A cardiac arrest would likely not be survivable. Presently, she would like to continue with full code. For now, I would continue her on diuretics. I have no further recommendations. cc: Tio Sommer MD MTDD
--- NOTE | 2019-06-03 17:14 | PROGRESS NOTE ---
DATE: 06/03/2019 SUBJECTIVE: Patient has no major complaints. OBJECTIVE: Blood pressure is 131/46, heart rate is 70, respiratory rate 16, temperature 98 degrees, 100% on 3 L.Cardiovascular: Regular rate and rhythm. Pulmonary: Bilateral breath sounds clear to auscultation. GI: Soft, nontender, nondistended. Bowel sounds are positive. [employer]ENT: She is awake, alert. LAB DATA: White count is 5, hemoglobin and hematocrit 8 and 29, platelets 154,000. Creatinine is down to 1.8. PROBLEM LIST: 1. Acute congestive heart failure exacerbation in the setting of also aortic stenosis. Discussed with family she is not a candidate because of her age and multiple comorbidities including her renal dysfunction and family seems compliant, I spoke to a daughter and granddaughter and they both agree that hospice was appropriate and they both agree that she is a DNR, but they are going to talk to her further about that. They are going to meet with hospice in the morning and consider outpatient hospice. 2. Hypoxic respiratory failure. She will likely need home oxygen, but hopefully hospice can take care of that. 3. Folate acid deficiency. She seems stable from that standpoint. DISPOSITION: Pending her clinical status but anticipate discharge hopefully tomorrow. I think she is stable for the floor. cc: Evens Nolan MD
--- NOTE | 2019-06-03 22:29 | PULMONOLOGY PROGRESS NOTE ---
DATE: 06/03/2019 SUBJECTIVE: The patient is being moved from the [facility] to a general floor. She is without specific complaints. OBJECTIVE: Vital Signs: Blood pressure 131/46, heart rate 70, respiratory rate 16, oxygen saturation 100% on nasal cannula. HEENT: Pupils are equal. Oropharynx appears clear. Neck: Supple. Chest: Reveals a 3 to 4/6 systolic ejection murmur right upper sternal border. Abdomen: Soft. Extremities: Reveal 1 to 2+ peripheral edema. IMPRESSION: An 88-year-old with severe aortic stenosis, hypoxemic respiratory failure, and acute on chronic renal failure. DISCUSSION: An 88-year-old with problems outlined above. Her chart has been reviewed. She is currently being evaluated by Palliative Care with anticipation of discharge to hospice. I agree with this plan. cc: Lázaro Sewell MD
[2019-06-04] MEDS: HUMULIN R SUBQ SCH ×3 (06:45→17:03)
[2019-06-04 07:22] LABS: BASO# 0.03 X1000 (0.0-0.2); BASO% 0.4 % (0.0-0.8); EOS% 2.4 % (0.0-10.0); HEMATOCRIT 31.9 % (37.0-47.0); LYMPH# 0.72 X1000 (1.2-3.4); LYMPH% 8.8 % (20.5-51.1); MCH 27.2 PG (27-31); MCHC 28.2 g/dL (33-37); MCV 96.4 FL (81-99); MONO# 0.62 X1000 (0.11-0.59); MONO% 7.6 % (1.7-9.3); MPV 10.3 FL (7.4-10.4); NEUT# 6.61 X1000 (1.4-6.5); NEUT% 80.8 % (42.2-75.2); PLT 208 X1000 (130-400); RBC 3.31 XMIL (4.2-5.4); RDW 14.6 % (11.5-14.5); WBC 8.18 X1000 (4.8-10.8)
[2019-06-04 07:42] LABS: CALCIUM 9.4 mg/dL (8.8-10.2); CREATININE 1.5 mg/dL (0.5-0.9); MAGNESIUM 1.7 mg/dL (1.5-2.7); POTASSIUM 4.8 mmol/L (3.5-5.1)
[2019-06-04] MEDS: ISORDIL PO SCH (08:55)
[2019-06-04] MEDS: COREG PO SCH (08:55)
[2019-06-04] MEDS: APRESOLINE PO SCH ×2 (08:56→13:08)
[2019-06-04] MEDS: LASIX IV SCH (08:56)
[2019-06-04] MEDS: HEPARIN SUBQ SCH (08:57)
[2019-06-04] MEDS: ICAR-C PO SCH (08:59)
[2019-06-04] MEDS ORDERED: ISORDIL PO SCH (13:00)
[2019-06-04] MEDS: FOLIC ACID 1 MG in NS 50 ML IV SCH (13:08)
--- NOTE | 2019-06-04 13:21 | CARDIOLOGY PROGRESS NOTE ---
DATE: 06/04/2019 SUBJECTIVE: Ms. Campbell has a poor appetite today. Otherwise, she has no pain complaints. OBJECTIVE: She is afebrile, heart rate is 75, blood pressure is 121/63. Her I's and O's continue to be negative. She has a total of 3.6 L negative for the hospitalization.General: No acute distress. Cardiovascular: She is in a regular rate and rhythm with a 3/6 systolic murmur at the right upper sternal border. She has no lower extremity edema. Chest: Exam has poor inspiratory effort. Coarse breath sounds diffusely. No increased work of breathing. Abdomen: Her abdomen is soft and nontender. PERTINENT DATA: White count 8.1 hematocrit 31, and platelet count 208,000. Her sodium is 137, potassium 4.8. BUN 35, creatinine is 1.5 which is improved from presentation. Her Mag level [place] 1[place] [address], this has steadily increased since the 2nd. ASSESSMENT: Ms. Campbell is an 88-year-old female with heart failure and severe aortic stenosis. PLAN: At this point, she is proceeding with hospice interventions. She is on hydralazine and isosorbide based on her reduced heart function. She continues on IV Lasix which I would recommend continuing for the time being. I will increase her isosorbide to 10 mg t.i.d. cc: Tio Sommer MD
--- NOTE | 2019-06-04 14:31 | DISCHARGE SUMMARY ---
ADMISSION DATE: 05/30/2019 DISCHARGE DATE: DIAGNOSES: 1. Acute congestive heart failure exacerbation. 2. Hypertension. 3. Critical aortic stenosis. CONSULTATIONS: 1. Pulmonary, Dr. Sewell. 2. Cardiology, Dr. Sommer. PROCEDURES: None. HISTORY AND HOSPITAL COURSE: She is an 88-year-old female with CAD status post CABG, and reported heart failure, coming in with 3 days of lethargy and shortness of breath. Her workup in the ER was more consistent with a CHF exacerbation. She had pulmonary edema. There was no white count. She was hypoxic on a Venturi mask. Her echocardiogram showed an EF of 35%, consistent with systolic heart failure. She also had critical aortic stenosis, moderate degree, valve area 0.7 cm. Cardiology was consulted and recommended medical management, did not feel because of her age and comorbidities that she would be a candidate for any aggressive intervention. Pulmonary was consulted. She had CHF. Chest x-ray, everything was most consistent with heart failure, so she was diuresed and improved. Chest x-ray on 06/01/2019 showed improvement. She was maintained on Coreg and diuretics. She did have some renal insufficiency while she was here. Based on her age, her GFR was around stage IV. At the time of discharge, creatinine was down to 1.5, so it is actually stage IIIB. In any case, the patient stabilized. After discussion with Cardiology about overall poor prognosis, according to him, he documented specifically a cardiac arrest would not likely be survivable, and recommended diuretics. At this point, she was a full code, although some of the family members acquiesced that she should be a DO NOT RESUSCITATE, but in any case, our plans are to discharge to hospice, and getting all the equipment set up, so we are going to discharge her on her regular medications, Coreg, her Lasix I am going to increase to 40 b.i.d., and we will continue comfort care measures at home. DISCHARGE MEDICATIONS: Coreg 3.125 b.i.d., gabapentin 100 b.i.d., hydralazine 10 t.i.d., and Lasix 40 b.i.d. TIME SPENT: A 32-minute discharge. cc: MD Lucia Newby CRNP
[2019-06-04 15:46] VITALS: BP 147/46
== END 2019-06-04 16:45 | disposition hospice, home (50) | DRG 291 ==
LOC: SUPCPDRO → ED 14:41 → EDIPHOLD 18:55 → 2N 21:54 → 4N 06-03 17:43
PROVIDERS: ATTEND Internal Medicine